=== PATIENT | male | born 2000 | race Hispanic/Latino ===

== ENCOUNTER 2021-11-26 11:03 | Emergency (ER) | payer OTHER, SELFPAY ==
[2021-11-26 11:05] VITALS: BP 122/77; PULSE 67; RESP 16; TEMP 36.7; O2SAT 100
--- NOTE | 2021-11-26 11:23 | ED.GENADULT ---
HPI - General Adult General Chief complaint: Skin/Abscess/Foreign Body Stated complaint: Suture Removal History of Present Illness HPI narrative: Patient is a 21-year-old male who presents to the [facility] via POV accompanied by father for suture removal 6 sutures of right thigh laceration. Patient reports sutures placed 1 week ago. Was prescribed Amoxicillin at that time. Dad reports top of wound to have bled yesterday. Dad also reports that they were instructed to have sutures removed in approx 14 days. Related Data Home Medications Medication Instructions Recorded Confirmed No Home Medications 11/26/21 11/26/21 Allergies Allergy/AdvReac Type Severity Reaction Status Date / Time No Known Allergies Allergy Verified 11/26/21 11:06 Review of Systems Review of Systems: Denies fever, chills, sweats, swelling, erythema, drainage, pain, sob, chest pain, n/v/d Exam Narrative: GENERAL: Well-appearing, well-nourished, and in no acute distress. HEAD: Normocephalic, atraumatic. No facial swelling appreciated. EYES: PERRLA and EOMI. No evidence of erythema, swelling, or drainage. ENT: Nares clear, no rhinorrhea or epistaxis.Mucous membranes moist and pink. Uvula is midline without erythema and swelling. No evidence of obstruction, petechial rash, cobblestoning, lesions, ulcers, erythema, swelling, exudates, peritonsillar abscess, tenting, or drooling. Breath odor and voice normal. NECK: Supple. No Lymphadenopathy or nuchal rigidity appreciated. CHEST: Bilateral lung menon are clear to auscultation. No respiratory distress. No evidence of cough or pleuritic cp upon examination. HEART: Regular rate and rhythm. No murmur, gallop, or rub heard. EXTREMITIES: Normal range of motion. No edema. SKIN: Warm, dry. No evidence of cellulitis, abscess, streaking, drainage, or bleeding. Moderate sized closed wound noted to medial aspect of right thigh. NEURO: No focal deficits. Alert and oriented x3. SPECIAL OBSERVATIONS: Smiling. Laughing. No evidence of discomfort. Course Course Level of Care: Express Care Visit Procedures Other Procedure Procedure 1: Other Procedure: suture removal. Wound edges cleansed with betadine. 2 sutures removed from bottom of repaired wound to medial aspect of right thigh. Subtle bleeding with subtle gaping at site observed post suture removal. 2 steri strips applied. Encouraged patient to return in 7 days to remove the 4 sutures that remain in place. Pt tolerated well. Verbalized understanding and agreed. Medical Decision Making Differential Diagnosis Differential Diagnosis: open wound, closed wound, cellulitis Vital Signs Vital Signs: reviewed Critical Care Time Critical Care Time Critical Care Time: No Discharge Plan Discharge Clinical Impression: Encounter for removal of sutures Patient Disposition: Home, Self-Care Condition: Stable Instructions: Care For Your Stitches (ED), Stitches Removal (ED) Additional Instructions: See discharge instructions for detailed information. YOU HAD 2 SUTURES REMOVED TODAY. BE SURE TO HAVE REMAINING 4 SUTURES REMOVED IN 7 DAYS THEY ARE NOT CURRENTLY READY TO BE REMOVED. If you have been prescribed a medication today, be sure to take/use the medication only as prescribed. You may take Tylenol/ibuprofen as needed for pain and swelling. Take only as directed per packaging label. Follow-up with your primary care provider as recommended. Prescriptions: No Action No Home Medications Follow-up/Referrals: PHYSICIAN,BILINGUAL [employer] [Primary Care Provider] - Time of Disposition: 11:44
== END 2021-11-26 11:46 | disposition home or self-care (01) ==
PROVIDERS: Emergency Provider Nurse Practitioner Family
DX: S71.111D Laceration without foreign body, right thigh, subsequent encounter (principal); X58.XXXD Exposure to other specified factors, subsequent encounter
CPT/HCPCS: 99202; G0463

== ENCOUNTER 2021-12-03 15:33 | Emergency (ER) | payer OTHER, SELFPAY ==
--- NOTE | 2021-12-03 15:42 | ED.SKABFB ---
HPI - Skin/Abscess/Foreign Bdy General Chief complaint: Skin/Abscess/Foreign Body <Savana Ferrell APRN - Last Filed: 12/03/21 15:48> Stated complaint: suture removal <Savana Ferrell APRN - Last Filed: 12/03/21 15:48> Time Seen by Provider: 12/03/21 15:55 <Savana Ferrell APRN - Last Filed: 12/03/21 15:48> History of Present Illness HPI narrative: 21 y/o male presented for suture removal of right thigh wound. Injury occurred around 11/19/21. On 11/26 he had 2 out of 6 sutures removed from the repaired wound; and due to subtle bleeding with gaping at site observed post suture removal steri strips were applied and he was instructed to return for additional suture removal. Encouraged patient to return in 7 days to remove the 4 sutures that remain in place.? <Savana Ferrell APRN - Last Filed: 12/03/21 15:48> Related Data Home medications: Home Medications Medication Instructions Recorded Confirmed No Home Medications 11/26/21 12/03/21 <Savana Ferrell APRN - Last Filed: 12/03/21 15:48> Allergies/Adverse reactions: Allergies Allergy/AdvReac Type Severity Reaction Status Date / Time No Known Allergies Allergy Verified 12/03/21 15:54 <Savana Ferrell APRN - Last Filed: 12/03/21 15:48> Exam Narrative: GENERAL:Well-appearing, well-nourished, and in no acute distress. HEAD:Normocephalic, atraumatic. EYES: PERRLA and EOMI. ENT: Nares clear, no rhinorrhea or epistaxis. Mucous membranes moist. NECK: Supple. CHEST: Clear to auscultation. No respiratory distress. HEART: Regular rate and rhythm. No murmur heard. Normal peripheral pulses. ABDOMEN: Soft, nontender, nondistended, normal active bowel sounds. EXTREMITIES: Normal range of motion. No edema. right leg above the knee inward on the lower thigh closet to knee , Healing with scab and minute open area that is well approximated with no bleeding noted. surrounding area is pink with healing scar that has begun. SKIN: Warm, dry, no rash. NEURO: No focal deficits. Alert and oriented x3. Left leg right <Joseph Vázquez NP - Last Filed: 12/03/21 16:04> Course Course Emergency Course: cleansed with normal saline on a4x4 with dry skin that was loosened and area able to be observed and scar is looking healthy <Joseph Vázquez NP - Last Filed: 12/03/21 16:04> Level of Care: Express Care Visit <Joseph Vázquez NP - Last Filed: 12/03/21 16:04> Vital Signs Vital signs: Vital Signs Temperature 97.7 F 12/03/21 15:44 Pulse Rate 63 12/03/21 15:44 Respiratory Rate 18 12/03/21 15:44 Blood Pressure 140/94 H 12/03/21 15:44 Pulse Oximetry 100 12/03/21 15:44 Oxygen Delivery Room Air 12/03/21 15:44 Temperature 97.7 F 12/03/21 15:44 Pulse Rate 63 12/03/21 15:44 Respiratory Rate 18 12/03/21 15:44 Blood Pressure 140/94 H 12/03/21 15:44 Pulse Oximetry 100 12/03/21 15:44 Oxygen Delivery Room Air 12/03/21 15:44 <Savana Ferrell, [employer] - Last Filed: 12/03/21 15:48> Vital Signs Temperature 97.7 F 12/03/21 15:44 Pulse Rate 63 12/03/21 15:44 Respiratory Rate 18 12/03/21 15:44 Blood Pressure 140/94 H 12/03/21 15:44 Pulse Oximetry 100 12/03/21 15:44 Oxygen Delivery Room Air 12/03/21 15:44 Temperature 97.7 F 12/03/21 15:44 Pulse Rate 63 12/03/21 15:44 Respiratory Rate 18 12/03/21 15:44 Blood Pressure 140/94 H 12/03/21 15:44 Pulse Oximetry 100 12/03/21 15:44 Oxygen Delivery Room Air 12/03/21 15:44 <Joseph Vázquez NP - Last Filed: 12/03/21 16:04> Discharge Plan Discharge Clinical Impression: Encounter for removal of sutures, Attention to dressings and sutures <Savana Ferrell, [employer] - Last Filed: 12/03/21 15:48> Patient Disposition: Home, Self-Care <Savana Ferrell APRN - Last Filed: 12/03/21 15:48> Condition: Stable <Savana Ferrell APRN - Last Filed: 12/03/21 15:48> Instructions:
[2021-12-03 15:44] VITALS: BP 140/94; PULSE 63; RESP 18; TEMP 36.5; O2SAT 100
== END 2021-12-03 16:00 | disposition home or self-care (01) ==
PROVIDERS: Emergency Provider Nurse Practitioner Family
DX: S71.111D Laceration without foreign body, right thigh, subsequent encounter (principal); X58.XXXD Exposure to other specified factors, subsequent encounter
CPT/HCPCS: 99211; G0463